=== PATIENT | male | born 1950 | race Hispanic/Latino ===

== ENCOUNTER → 2018-11-07 | Outpatient (CLI) | payer OTHER | END | disposition home or self-care (01) | LOC: SHCH 07:59 | PROVIDERS: ATTEND Internal Medicine Cardiovascular Disease | DX: I11.9 Hypertensive heart disease without heart failure (principal); I35.8 Other nonrheumatic aortic valve disorders; Z95.0 Presence of cardiac pacemaker | CPT/HCPCS: 93306 ==

== ENCOUNTER → 2019-12-27 | Outpatient (CLI) | payer OTHER ==
[~2019-12-27] MED LIST: CANA300T PO; FERR325T29 PO; FURO40TA7 PO; LEVO125T11 PO; LOSA100T58 PO; METF-446 PO; NITR0.4T50 SL; PRAV80TA21 PO; SITA100T12 PO; WARF-57 PO
== END | disposition home or self-care (01) ==
LOC: OIH 13:37
PROVIDERS: ATTEND Internal Medicine Cardiovascular Disease
DX: Z13.6 Encounter for screening for cardiovascular disorders (principal)
CPT/HCPCS: 75571

== ENCOUNTER → 2020-03-17 | Outpatient (CLI) | payer OTHER ==
[~2020-03-17] MED LIST changes: +APIX2.5T PO; +ASPI-1005 PO; +DEXA6TAB PO; +FOLI0.4T2 PO; +REGADENOSON 0.4 MG/5 ML PF SYG IVP SCH; -WARF-57 PO
== END | disposition home or self-care (01) ==
LOC: SHCH 07:42
PROVIDERS: ATTEND Internal Medicine Cardiovascular Disease
DX: I10 Essential (primary) hypertension (principal); I25.10 Atherosclerotic heart disease of native coronary artery without angina pectoris
CPT/HCPCS: 78452; 93017; 96374; A9500 ×2; J2785

== ENCOUNTER 2020-04-07 11:06 | Inpatient (IN) | payer OTHER ==
[~2020-04-07] VITALS: Ht 170.2 cm; Wt 98.6 kg
[2020-04-07] MEDS ORDERED: ONDANSETRON HCL 4 MG/2 ML VIAL ONE (12:31)
[2020-04-07] MEDS ORDERED: MORPHINE SULFATE 2 MG/ML 1ML SYG IM PRN (16:15)
[2020-04-07] MEDS ORDERED: PANTOPRAZOLE SODIUM 40 MG TABLET.DR PO SCH (16:15)
[2020-04-07] MEDS: CEFTRIAXONE SODIUM 1 GM IVP SCH (16:15)
[2020-04-07] MEDS ORDERED: DOXYCYCLINE HYCLATE 100 MG TABLET PO ONE (16:46)
[2020-04-07] MEDS ORDERED: CEFTRIAXONE SODIUM 1 GM ONE (16:46)
[2020-04-07] MEDS: INSULIN HUMULIN R 100 UNIT/ML 3ML SQ SCH (21:00)
[2020-04-07] MEDS: DOXYCYCLINE HYCLATE 100 MG TABLET PO SCH (21:00)
[2020-04-08] MEDS ORDERED: DOXYCYCLINE HYCLATE 100 MG TABLET PO ONE ×2 (03:14→16:16)
[2020-04-08] MEDS ORDERED: CEFTRIAXONE SODIUM 1 GM ONE ×2 (03:14→16:17)
[2020-04-08] MEDS ORDERED: ACETAMINOPHEN 325 MG TAB ONE (03:14)
[2020-04-08] MEDS: CEFTRIAXONE SODIUM 1 GM IVP SCH ×2 (04:15→16:15)
[2020-04-08] MEDS: INSULIN HUMULIN R 100 UNIT/ML 3ML SQ SCH ×4 (07:30→21:00)
[2020-04-08] MEDS ORDERED: METOPROLOL TARTRATE 25 MG TAB ONE (08:03)
[2020-04-08] MEDS ORDERED: METHYLPREDNISOLONE SOD SUCC 40MG/ML 1ML ONE ×2 (08:03→21:19)
[2020-04-08] MEDS ORDERED: PANTOPRAZOLE SODIUM 40 MG TABLET.DR ONE (08:03)
[2020-04-08] MEDS: ENOXAPARIN SODIUM 40 MG/0.4 ML SYRINGE SQ SCH (09:00)
[2020-04-08] MEDS ORDERED: METHYLPREDNISOLONE SOD SUCC 40MG/ML 1ML IVP SCH (09:00)
[2020-04-08] MEDS: METOPROLOL SUCCINATE 50 MG TAB.SR.24H PO SCH (09:00)
[2020-04-08] MEDS: DOXYCYCLINE HYCLATE 100 MG TABLET PO SCH ×2 (09:00→21:00)
[2020-04-08] MEDS: PANTOPRAZOLE SODIUM 40 MG TABLET.DR PO SCH (09:00)
--- NOTE | 2020-04-08 10:36 | NUR ---
DCP: HOME with Family Sw unable to meet with pt in ER [facility] unit. Sw spoke to son Polo Garcia III [phone]. PEr son pt live with Gogo Garcia [phone]. Pt is independent of all ADLS, uses CPAP at night, no in home care services. PCP is Jg Ramires and pt uses [facility] for rx. Plan is home at pa. Addendum: 04/08/20 at 1038 by DEION BILLY SS Amended: Links added.
[2020-04-08] MEDS ORDERED: THIAMINE HCL 100 MG/ML 2ML VIAL ONE (13:56)
[2020-04-08] MEDS ORDERED: SODIUM POLYSTYRENE SULFONATE 15 GM/60 ML ML ONE (13:56)
[2020-04-08] MEDS ORDERED: FOLIC ACID/VITAMIN B COMP W-C 1 CAP TAB PO SCH (14:30)
[2020-04-08] MEDS: SODIUM CHLORIDE 0.9% 1000ML 1,000 ML IV SCH ×2 (16:29→16:30)
[2020-04-08] MEDS ORDERED: INSULIN HUMULIN R 100 UNIT/ML 3ML ONE (23:10)
[2020-04-09] MEDS ORDERED: CEFTRIAXONE SODIUM 1 GM ONE (04:08)
[2020-04-09] MEDS ORDERED: DOXYCYCLINE HYCLATE 100 MG TABLET PO ONE ×2 (04:08→15:31)
[2020-04-09] MEDS ORDERED: SODIUM CHLORIDE 0.9% 100 ML IV ONE (04:09)
[2020-04-09] MEDS: CEFTRIAXONE SODIUM 1 GM IVP SCH ×2 (04:15→16:15)
[2020-04-09] MEDS: INSULIN HUMULIN R 100 UNIT/ML 3ML SQ SCH ×4 (07:30→21:00)
[2020-04-09] MEDS ORDERED: ENOXAPARIN SODIUM 40 MG/0.4 ML SYRINGE SQ ONE (07:42)
[2020-04-09] MEDS ORDERED: PANTOPRAZOLE SODIUM 40 MG TABLET.DR ONE (07:42)
[2020-04-09] MEDS: ENOXAPARIN SODIUM 40 MG/0.4 ML SYRINGE SQ SCH (09:00)
[2020-04-09] MEDS: DOXYCYCLINE HYCLATE 100 MG TABLET PO SCH (09:00)
[2020-04-09] MEDS: PANTOPRAZOLE SODIUM 40 MG TABLET.DR PO SCH (09:00)
[2020-04-09] MEDS: METOPROLOL SUCCINATE 50 MG TAB.SR.24H PO SCH (09:00)
[2020-04-09] MEDS ORDERED: METHYLPREDNISOLONE SOD SUCC 40MG/ML 1ML ONE (21:48)
[2020-04-09 21:57] VITALS: BP 120/77; PULSE 71; RESP 17; TEMP 97.6
--- NOTE | 2020-04-09 22:00 | NUR ---
ADMISSION [id number] RECEIVED ED REPORT FROM VIRGINIA PEREZ RN 2199 PT ADMIT RM 410 ACCOMPANIED BY NO ONE CONNECTED TO TELE MONITOR PT SELF AMBULATE TO CHAIR IN NO DISTRESS AT THIS TIME. ADMISSION DATABASE COMPLETED BEFORE ARRIVAL. HOME MED RECONCILED INTO SYSTEM. PT VOICES NO CONCERNS AT THIS TIME STATES IS 'FEELING BETTER' WILL CONTINUE TO MONITOR PT.
[2020-04-09] MEDS: SODIUM CHLORIDE 0.9% 1000ML 1,000 ML IV SCH (22:30)
[2020-04-09 23:46] VITALS: BP 109/68; PULSE 70; RESP 17; TEMP 97.9
[2020-04-10 03:27] VITALS: BP 118/68; PULSE 70; RESP 17; TEMP 98
[2020-04-10] MEDS: DOXYCYCLINE HYCLATE 100 MG TABLET PO SCH ×3 (03:41→20:50)
[2020-04-10] MEDS: CEFTRIAXONE SODIUM 1 GM IVP SCH ×2 (03:41→16:27)
[2020-04-10] MEDS: INSULIN HUMULIN R 100 UNIT/ML 3ML SQ SCH ×4 (06:14→20:57)
[2020-04-10 08:00] VITALS: BP 127/75; PULSE 72; RESP 18; TEMP 98.2
[2020-04-10] MEDS: METOPROLOL SUCCINATE 50 MG TAB.SR.24H PO SCH (09:19)
[2020-04-10] MEDS: PANTOPRAZOLE SODIUM 40 MG TABLET.DR PO SCH (09:19)
[2020-04-10] MEDS: ENOXAPARIN SODIUM 40 MG/0.4 ML SYRINGE SQ SCH (10:03)
[2020-04-10 12:00] VITALS: BP 132/72; PULSE 70; RESP 18; TEMP 98.1
[2020-04-10 16:00] VITALS: BP 130/78; PULSE 70; RESP 17; TEMP 97.5
[2020-04-10 20:38] VITALS: BP 119/75; PULSE 70; RESP 19; TEMP 97.9
[2020-04-10 23:36] VITALS: BP 150/77; PULSE 72; RESP 18; TEMP 98.4
--- NOTE | 2020-04-10 23:54 | NUR ---
Assessment Patient is in the bed laying down resting peacefully. He stated that he feels fine & does not need anything right now. Vitals are stable. Pt is being closely monitored.
[2020-04-11 03:24] VITALS: BP 132/66; PULSE 72; RESP 18; TEMP 97.8
[2020-04-11] MEDS: CEFTRIAXONE SODIUM 1 GM IVP SCH (03:43)
[2020-04-11] MEDS: INSULIN HUMULIN R 100 UNIT/ML 3ML SQ SCH ×2 (06:17→12:05)
[2020-04-11 08:02] VITALS: BP 132/71; PULSE 70; RESP 18; TEMP 97.8
[2020-04-11] MEDS: PANTOPRAZOLE SODIUM 40 MG TABLET.DR PO SCH (08:29)
[2020-04-11] MEDS: DOXYCYCLINE HYCLATE 100 MG TABLET PO SCH (08:29)
[2020-04-11] MEDS: ENOXAPARIN SODIUM 40 MG/0.4 ML SYRINGE SQ SCH (08:29)
[2020-04-11] MEDS: METOPROLOL SUCCINATE 50 MG TAB.SR.24H PO SCH (08:31)
[2020-04-11 10:33] VITALS: BP 122/48; PULSE 69; RESP 18; TEMP 98.1
--- NOTE | 2020-04-11 15:25 | NUR ---
CM NOTE/DCP NEW ORDER FOR IRU. PATIENT IS COVID POSITIVE, MADE DR. WILDER AWARE THAT SNF IS MORE APPROPRIATE. WANTS ME TO DISCUSS SNF VS IRU WITH PATIENT. PATIENT CALLED TO ROOM TO DISCUSS DC PLANNING. PER PATIENT, IS GOOD WITH AMBULATION AND DECLINING SNF OR IRU. PER PATIENT, IS AT HOME AND IS COVID POSITIVE. SON, IRIS SWARTZ III, IS SUPPORT SYSTEM AND WILL PROVIDE GROCERIES AND ANYTHING ELSE NEEDED PATIENT AND MUST QUARANTINE DUE TO POSITIVE PINZON VIRUS. SON CALLED TO [phone], NO ANSWER, VM LEFT. DR. WILDER CALLED AND MADE AWARE OF PATIENT DECLINING IRU AND SNF. PER , WILL POSSIBLY DC HOME THIS EVENING. PRIMARY NURSE, BONNY, OUT TO LUNCH. MESSAGE LEFT WITH JUAN ANTONIO DALEY.
[2020-04-11 16:35] VITALS: BP 145/92; PULSE 71; RESP 18; TEMP 98
--- NOTE | 2020-04-11 18:19 | NUR ---
Pt discharged at 6:05pm, pt was A&Ox4, showed no signs and symptoms of distress, on room air, pt was educated and given education on covid19 and discharged medication, pt came to pick him up, pt stated he understood discharge instructions and that he will quarantine for 14 days, pt signed papers, IV taken out, Tele monitor off,
== END 2020-04-11 18:30 | disposition home or self-care (01) | DRG 871 ==
LOC: EDH 11:06 → EDHIP 15:59 → 4BH 04-09 21:38
PROVIDERS: ADMIT Internal Medicine; ATTEND Internal Medicine
DX: A41.89 Other specified sepsis (principal); U07.1 COVID-19; J12.89 Other viral pneumonia; J96.01 Acute respiratory failure with hypoxia; N17.9 Acute kidney failure, unspecified; I50.32 Chronic diastolic (congestive) heart failure; J44.0 Chronic obstructive pulmonary disease with (acute) lower respiratory infection; I13.0 Hypertensive heart and chronic kidney disease with heart failure and stage 1 through stage 4 chronic kidney disease, or unspecified chronic kidney disease; E66.01 Morbid (severe) obesity due to excess calories; N18.9 Chronic kidney disease, unspecified; I48.91 Unspecified atrial fibrillation; E78.5 Hyperlipidemia, unspecified; D64.9 Anemia, unspecified; R19.7 Diarrhea, unspecified; E11.22 Type 2 diabetes mellitus with diabetic chronic kidney disease; E87.5 Hyperkalemia; Z95.0 Presence of cardiac pacemaker; Z87.891 Personal history of nicotine dependence; Z82.3 Family history of stroke; Z85.46 Personal history of malignant neoplasm of prostate; Z78.9 Other specified health status; Z68.34 Body mass index [BMI] 34.0-34.9, adult; Z82.49 Family history of ischemic heart disease and other diseases of the circulatory system; Z83.3 Family history of diabetes mellitus

== ENCOUNTER → 2020-08-01 | Outpatient (CLI) | payer OTHER | END | disposition home or self-care (01) | LOC: SHCH 07:40 | PROVIDERS: ATTEND Internal Medicine Cardiovascular Disease | DX: I48.91 Unspecified atrial fibrillation (principal); I11.9 Hypertensive heart disease without heart failure; I10 Essential (primary) hypertension | CPT/HCPCS: 78452; 93017; 96374; A9500 ×2; J2785 ==

== ENCOUNTER 2020-09-23 05:55 | Day surgery (SDC) | payer OTHER ==
[2020-09-22 09:36] LABS: BASOPHILS % (AUTO) 0.7 % (0.0-5.0); EOSINOPHILS % (AUTO) 2.1 % (0.0-8.0); HEMATOCRIT 33.5 % (42-54); LYMPHOCYTES % (AUTO) 18.6 % (21.0-51.0); MEAN CORPUSCULAR HEMOGLOBIN 32.2 pg (27.0-33.0); MEAN CORPUSCULAR HGB CONC 29.6 g/dL (32.0-36.0); MEAN CORPUSCULAR VOLUME 109.1 fL (79-99); MONOCYTES % (AUTO) 9.5 % (3.0-13.0); NEUTROPHILS % (AUTO) 68.7 % (40.0-77.0); PLATELET COUNT (AUTO) 177 K/uL (130-400); RED BLOOD CELL COUNT(AUTO) 3.07 MIL/uL (4.50-6.20); RED CELL DISTRIBUTION WIDTH 15.8 % (11.0-15.5); WHITE BLOOD COUNT (AUTO) 5.7 K/uL (4.8-10.8)
[2020-09-22 09:40] LABS: APPEARANCE,URINE Clear (CLEAR); BILIRUBIN,URINE Negative (NEGATIVE); COLOR,URINE Yellow (YELLOW); GLUCOSE, URINE (UA) 500 mg/dL (NEGATIVE); KETONES,URINE Negative (NEGATIVE); LEUKOCYTE ESTERASE ,URINE Negative (NEGATIVE); NITRATE,URINE Negative (NEGATIVE); OCCULT BLOOD,URINE Negative (NEGATIVE); PROTEIN,URINE Negative (NEGATIVE); UROBILINOGEN,URINE 0.2 mg/dL (0.2-1.0)
[2020-09-22 09:46] LABS: CREATININE 1.3 mg/dL (0.5-1.5)
[2020-09-22 09:50] LABS: INR 0.97 (0.85-1.15); PARTIAL THROMBOPLASTIN TIME 25.9 SEC (26.3-35.5); PROTHROMBIN TIME 10.5 SEC (9.6-11.6)
[2020-09-22 09:59] LABS: BACTERIA,URINE Rare /HPF (None Seen); RBC,URINE 0-1 /HPF (0-1); SPERM,URINE Few /HPF (None Seen); SQUAMOUS EPITHELIAL CELL,UR Rare /HPF (0-2); WBC,URINE 0-1 /HPF (0-1)
--- NOTE | 2020-09-22 11:27 | NUR ---
LABS ABNORMAL H&H , CREA REPORTED TO Ivis CRENSHAW ,NO FURTHER ORDERS GIVEN. OK TO PROCEED WITH PLANNED PROCEDURE
[2020-09-22 12:23] VITALS: BP 128/72
[~2020-09-23] VITALS: Ht 162.6 cm; Wt 104.0 kg
[2020-09-23] VITALS (10 sets, daily range): BP systolic 104–141; BP diastolic 56–75
[~2020-09-23 05:55] MED LIST changes: -APIX2.5T PO; -ASPI-1005 PO; +ASPI-1443 PO; -DEXA6TAB PO; -LEVO125T11 PO; +LEVO137C4 PO; +METO-408 PO; -REGADENOSON 0.4 MG/5 ML PF SYG IVP SCH
[2020-09-23] MEDS ORDERED: SODIUM CHLORIDE 0.9% 1000ML 1,000 ML IV ONE (06:27)
[2020-09-23] MEDS ORDERED: HEPARIN SODIUM 1000UNIT/ML 10ML VIAL ONE (07:43)
[2020-09-23] MEDS ORDERED: NITROGLYCERIN 2 MG/VIAL VIAL IV ONE (07:43)
[2020-09-23] MEDS ORDERED: IOHEXOL 350 MG/ML 100ML INFUS..BTL IV ONE (07:43)
[2020-09-23] MEDS ORDERED: IOHEXOL-350 50ML VIAL IV ONE (07:43)
[2020-09-23] MEDS ORDERED: SODIUM BICARB 50MEQ 50ML VIAL 50 ML ONE (07:43)
[2020-09-23] MEDS ORDERED: MEPERIDINE-PF 25 MG/ML SYG ONE ×2 (07:44→09:08)
[2020-09-23] MEDS ORDERED: MIDAZOLAM HCL 1 MG/ML 2ML VIAL ONE ×2 (07:44→09:08)
[2020-09-23] MEDS ORDERED: LIDOCAINE HCL 2% 20ML ONE (07:45)
[2020-09-23] MEDS ORDERED: NICARDIPINE HCL 25 MG/10 ML ML IV ONE (08:53)
[2020-09-23] MEDS ORDERED: SODIUM CHLORIDE 0.9% 1000ML 1,000 ML IV SCH (10:00)
[2020-09-23] MEDS ORDERED: ACETAMINOPHEN-CODEINE 300/30MG TAB PO PRN ×2 (10:00)
== END 2020-09-23 14:23 | disposition home or self-care (01) ==
LOC: DAH 05:55
PROVIDERS: ATTEND Internal Medicine Cardiovascular Disease
DX: I25.119 Atherosclerotic heart disease of native coronary artery with unspecified angina pectoris (principal); I11.0 Hypertensive heart disease with heart failure; I50.32 Chronic diastolic (congestive) heart failure; I48.20 Chronic atrial fibrillation, unspecified; I49.5 Sick sinus syndrome; E11.9 Type 2 diabetes mellitus without complications; G47.33 Obstructive sleep apnea (adult) (pediatric); E78.5 Hyperlipidemia, unspecified; Z79.84 Long term (current) use of oral hypoglycemic drugs; Z79.82 Long term (current) use of aspirin; Z79.899 Other long term (current) drug therapy; Z79.890 Hormone replacement therapy; Z98.890 Other specified postprocedural states; Z95.0 Presence of cardiac pacemaker; Z85.46 Personal history of malignant neoplasm of prostate
CPT/HCPCS: 36415; 71045; 80048; 81001; 82948 ×2; 85025; 85610; 85730; 93005; 93458; A4215; A4221; A4222; A4223; A4663; C1769 ×3; C1894 ×2; J1644 ×2; J2175 ×2; J2250 ×2; J3490 ×4; J7030; Q9965; Q9967 ×2; 99156; 99157

== ENCOUNTER 2020-10-27 07:35 | Day surgery (SDC) | payer OTHER ==
[2020-10-23 09:35] LABS: BASOPHILS % (AUTO) 0.5 % (0.0-5.0); EOSINOPHILS % (AUTO) 1.5 % (0.0-8.0); LYMPHOCYTES % (AUTO) 12.9 % (21.0-51.0); MEAN CORPUSCULAR HEMOGLOBIN 32.7 pg (27.0-33.0); MEAN CORPUSCULAR HGB CONC 31.7 g/dL (32.0-36.0); MEAN CORPUSCULAR VOLUME 103.3 fL (79-99); MONOCYTES % (AUTO) 8.5 % (3.0-13.0); NEUTROPHILS % (AUTO) 76.2 % (40.0-77.0); PLATELET COUNT (AUTO) 143 K/uL (130-400); RED BLOOD CELL COUNT(AUTO) 4.55 MIL/uL (4.50-6.20); RED CELL DISTRIBUTION WIDTH 14.1 % (11.0-15.5); WHITE BLOOD COUNT (AUTO) 8.5 K/uL (4.8-10.8)
[2020-10-23 09:38] LABS: APPEARANCE,URINE Clear (CLEAR); BILIRUBIN,URINE Negative (NEGATIVE); COLOR,URINE Yellow (YELLOW); GLUCOSE, URINE (UA) 500 mg/dL (NEGATIVE); KETONES,URINE Negative (NEGATIVE); LEUKOCYTE ESTERASE ,URINE Negative (NEGATIVE); NITRATE,URINE Negative (NEGATIVE); OCCULT BLOOD,URINE Negative (NEGATIVE); PH,URINE 6.5 (5.0-8.0); PROTEIN,URINE Negative (NEGATIVE); UROBILINOGEN,URINE 0.2 mg/dL (0.2-1.0)
[2020-10-23 09:44] LABS: CREATININE 1.2 mg/dL (0.5-1.5); POTASSIUM 4.7 mmol/L (3.5-5.1)
[2020-10-23 09:47] LABS: INR 1.05 (0.85-1.15); PROTHROMBIN TIME 11.2 SEC (9.6-11.6)
[2020-10-23 09:49] LABS: PARTIAL THROMBOPLASTIN TIME 28.5 SEC (26.3-35.5)
[2020-10-23 09:54] LABS: BACTERIA,URINE None Seen /HPF (None Seen); RBC,URINE None Seen /HPF (0-1); WBC,URINE 0-1 /HPF (0-1)
[2020-10-24 09:30] VITALS: BP 148/70
[~2020-10-27] VITALS: Ht 165.1 cm; Wt 104.5 kg
[~2020-10-27 07:35] MED LIST changes: +0.9% NACL 500ML IV.SOLN 500 ML IV SCH; -FOLI0.4T2 PO; +FOLI1 PO; -NITR0.4T50 SL; +VITAMIN B12 PO
[2020-10-27] MEDS ORDERED: 0.9%NACL 1000ML 1,000 ML IV ONE (07:50)
[2020-10-27 08:00] VITALS: BP 153/70
[2020-10-27 09:30] VITALS: BP 126/68
[2020-11-18] MEDS ORDERED: HYDR-4060 PO (09:59)
== END 2020-10-27 09:30 | disposition home or self-care (01) ==
LOC: DAH 07:35
PROVIDERS: ATTEND Internal Medicine Cardiovascular Disease
DX: I25.10 Atherosclerotic heart disease of native coronary artery without angina pectoris (principal); E11.9 Type 2 diabetes mellitus without complications; Z53.8 Procedure and treatment not carried out for other reasons; Z79.01 Long term (current) use of anticoagulants; Z79.84 Long term (current) use of oral hypoglycemic drugs
CPT/HCPCS: 36415; 71045; 80048; 81001; 82948; 85025; 85610; 85730; 93005; A4215; A4221; A4222; A4223 ×2; A4663; A6260; J7030

== ENCOUNTER 2020-11-16 08:40 | Emergency (ER) | payer OTHER ==
[~2020-11-16 08:40] MED LIST changes: -0.9% NACL 500ML IV.SOLN 500 ML IV SCH
[2020-11-16] MEDS ORDERED: ONDANSETRON ODT 4 MG TAB ONE (10:11)
[2020-11-16] MEDS ORDERED: HYDROMORPHONE 1 MG/1 ML AMP ONE (10:11)
[2020-11-18] MEDS ORDERED: HYDR-4060 PO (09:59)
== END 2020-11-16 11:20 | disposition home or self-care (01) ==
LOC: EDH 08:40
DX: M54.32 Sciatica, left side (principal); I48.91 Unspecified atrial fibrillation; I50.9 Heart failure, unspecified; J44.9 Chronic obstructive pulmonary disease, unspecified; I12.0 Hypertensive chronic kidney disease with stage 5 chronic kidney disease or end stage renal disease; E11.22 Type 2 diabetes mellitus with diabetic chronic kidney disease; N18.6 End stage renal disease
CPT/HCPCS: 96372; 99283; J1170

== ENCOUNTER 2020-11-19 05:42 | Day surgery (SDC) | payer OTHER ==
[2020-11-17 10:46] LABS: BASOPHILS % (AUTO) 0.4 % (0.0-5.0); EOSINOPHILS % (AUTO) 2.2 % (0.0-8.0); HEMATOCRIT 47.6 % (42-54); LYMPHOCYTES % (AUTO) 15.2 % (21.0-51.0); MEAN CORPUSCULAR HEMOGLOBIN 32.1 pg (27.0-33.0); MEAN CORPUSCULAR HGB CONC 32.1 g/dL (32.0-36.0); MEAN CORPUSCULAR VOLUME 99.8 fL (79-99); MONOCYTES % (AUTO) 9.9 % (3.0-13.0); NEUTROPHILS % (AUTO) 72.1 % (40.0-77.0); PLATELET COUNT (AUTO) 130 K/uL (130-400); RED BLOOD CELL COUNT(AUTO) 4.77 MIL/uL (4.50-6.20); RED CELL DISTRIBUTION WIDTH 13.3 % (11.0-15.5)
[2020-11-17 10:47] LABS: APPEARANCE,URINE Clear (CLEAR); BILIRUBIN,URINE Negative (NEGATIVE); COLOR,URINE Yellow (YELLOW); GLUCOSE, URINE (UA) >=1000 mg/dL (NEGATIVE); KETONES,URINE Negative (NEGATIVE); LEUKOCYTE ESTERASE ,URINE Negative (NEGATIVE); NITRATE,URINE Negative (NEGATIVE); OCCULT BLOOD,URINE Negative (NEGATIVE); PROTEIN,URINE Negative (NEGATIVE)
[2020-11-17 10:53] LABS: BACTERIA,URINE Rare /HPF (None Seen); RBC,URINE None Seen /HPF (0-1); SQUAMOUS EPITHELIAL CELL,UR 0-2 /HPF (0-2); WBC,URINE None Seen /HPF (0-1)
[2020-11-17 10:54] LABS: CREATININE 1.4 mg/dL (0.5-1.5); POTASSIUM 4.8 mmol/L (3.5-5.1)
[2020-11-17 11:28] LABS: INR 1.06 (0.85-1.15); PROTHROMBIN TIME 11.5 SEC (9.6-11.6)
[2020-11-18 09:12] VITALS: BP 148/82
[~2020-11-19] VITALS: Ht 167.6 cm; Wt 104.0 kg
[2020-11-19] VITALS (12 sets, daily range): BP systolic 116–155; BP diastolic 63–79
[~2020-11-19 05:42] MED LIST changes: +HYDR-4060 PO; -VITAMIN B12 PO
[2020-11-19] MEDS ORDERED: 0.9%NACL 1000ML 1,000 ML IV ONE (06:09)
[2020-11-19] MEDS ORDERED: SODIUM BICARB 50MEQ 50ML VIAL 50 ML ONE (07:13)
[2020-11-19] MEDS ORDERED: NITROGLYCERIN 2 MG VIAL IV ONE (07:14)
[2020-11-19] MEDS ORDERED: MIDAZOLAM HCL 1 MG/ML 2ML VIAL ONE ×2 (07:14→07:53)
[2020-11-19] MEDS ORDERED: HEPARIN 10,000 UNIT/10ML (1,000 UNIT/ML) VIAL ONE (07:14)
[2020-11-19] MEDS ORDERED: MEPERIDINE-PF 25 MG/ML SYG ONE ×2 (07:14→07:53)
[2020-11-19] MEDS ORDERED: LIDOCAINE HCL 400MG/20ML VIAL ONE (07:14)
[2020-11-19] MEDS ORDERED: IOHEXOL 350 MG/ML 100ML INFUS..BTL IV ONE (07:14)
[2020-11-19] MEDS ORDERED: IOHEXOL-350 50ML VIAL IV ONE (07:14)
[2020-11-19] MEDS ORDERED: NITR0.4T50 SL (07:18)
[2020-11-19] MEDS ORDERED: CLOPIDOGREL 300MG TAB ONE (08:22)
[2020-11-19] MEDS ORDERED: ASPIRIN 325MG EC TAB PO ONE (08:22)
[2020-11-19] MEDS ORDERED: 0.9%NACL 1000ML 1,000 ML IV SCH (08:30)
[2020-11-19] MEDS ORDERED: DEXTROSE 50%-WATER 50 ML DISP.SYRIN IV PRN (08:45)
[2020-11-19] MEDS ORDERED: INSULIN HUMULIN R 100 UNIT/ML 3ML SQ SCH (11:30)
== END 2020-11-19 15:05 ==
LOC: DAH 05:42
PROVIDERS: ATTEND Internal Medicine Cardiovascular Disease
DX: I25.10 Atherosclerotic heart disease of native coronary artery without angina pectoris (principal); I48.20 Chronic atrial fibrillation, unspecified; I49.5 Sick sinus syndrome; I10 Essential (primary) hypertension; E78.5 Hyperlipidemia, unspecified; E11.9 Type 2 diabetes mellitus without complications; G47.33 Obstructive sleep apnea (adult) (pediatric); Z79.899 Other long term (current) drug therapy; Z79.01 Long term (current) use of anticoagulants; Z79.82 Long term (current) use of aspirin; Z79.84 Long term (current) use of oral hypoglycemic drugs; Z95.0 Presence of cardiac pacemaker; Z85.46 Personal history of malignant neoplasm of prostate; Z86.16 Personal history of COVID-19; Z98.890 Other specified postprocedural states
CPT/HCPCS: 36415 ×2; 71045; 80048; 81001; 82948 ×2; 85025; 85347; 85610; 85730; 93005; 93454; A4215; A4216; A4221; A4222; A4223 ×3; A4606; A4663; C1725; C1760; C1769 ×2; C1874; C1887; C1894; C9600; J1644 ×2; J2175 ×2; J2250 ×2; J3490 ×3; J7030; Q9965; Q9967; 99156; 99157

== ENCOUNTER 2021-02-12 23:40 | Emergency (ER) | payer OTHER ==
[~2021-02-12 23:40] MED LIST changes: +NITR0.4T50 SL
[2021-02-13] MEDS ORDERED: DiphenhydrAMINE HCL 50 MG/ML VIAL ONE (00:06)
[2021-02-13] MEDS ORDERED: KETOROLAC TROMETHAMINE 30MG/ML ONE (00:06)
[2021-02-13 00:34] LABS: BASOPHILS % (AUTO) 0.4 % (0.0-5.0); EOSINOPHILS % (AUTO) 1.1 % (0.0-8.0); LYMPHOCYTES % (AUTO) 12.6 % (21.0-51.0); MEAN CORPUSCULAR HEMOGLOBIN 32.9 pg (27.0-33.0); MEAN CORPUSCULAR VOLUME 102.9 fL (79-99); MONOCYTES % (AUTO) 8.5 % (3.0-13.0); NEUTROPHILS % (AUTO) 76.9 % (40.0-77.0); NUCLEATED RED BLOOD CELLS 0.2 % (0.0-0.19); PLATELET COUNT (AUTO) 217 K/uL (130-400); RED BLOOD CELL COUNT(AUTO) 2.43 MIL/uL (4.50-6.20); RED CELL DISTRIBUTION WIDTH 18.5 % (11.0-15.5); WHITE BLOOD COUNT (AUTO) 9.7 K/uL (4.8-10.8)
[2021-02-13 00:37] LABS: CREATININE 1.6 mg/dL (0.5-1.5); POTASSIUM 4.6 mmol/L (3.5-5.1)
[2021-02-13 00:41] LABS: INR 1.08 (0.85-1.15); PARTIAL THROMBOPLASTIN TIME 21.6 SEC (26.3-35.5); PROTHROMBIN TIME 11.1 SEC (9.6-11.6)
[2021-02-13 00:42] LABS: ALBUMIN 3.6 g/dL (3.5-5.0); BILIRUBIN,TOTAL 0.4 mg/dL (0.2-1.0); TOTAL PROTEIN, SERUM 6.9 g/dL (6.0-8.3)
== END 2021-02-13 01:26 | disposition home or self-care (01) ==
LOC: EDH 23:40
DX: R51.9 Headache, unspecified (principal); I48.91 Unspecified atrial fibrillation; I50.9 Heart failure, unspecified; I12.9 Hypertensive chronic kidney disease with stage 1 through stage 4 chronic kidney disease, or unspecified chronic kidney disease; E11.22 Type 2 diabetes mellitus with diabetic chronic kidney disease; N18.2 Chronic kidney disease, stage 2 (mild); J44.9 Chronic obstructive pulmonary disease, unspecified
CPT/HCPCS: 36415; 70450; 80053; 85025; 85610; 85730; 93005; 96361; 96374; 96375; 99285; J1200; J1885

== ENCOUNTER 2021-07-16 12:47 | Inpatient (IN) | payer OTHER ==
[~2021-07-16] VITALS: Ht 167.6 cm; Wt 102.4 kg
[2021-07-16 13:24] LABS: BASOPHILS % (AUTO) 0.3 % (0.0-5.0); EOSINOPHILS % (AUTO) 0.3 % (0.0-8.0); HEMATOCRIT 44.1 % (42-54); LYMPHOCYTES % (AUTO) 4.5 % (21.0-51.0); MEAN CORPUSCULAR HEMOGLOBIN 31.6 pg (27.0-33.0); MEAN CORPUSCULAR HGB CONC 32.4 g/dL (32.0-36.0); MEAN CORPUSCULAR VOLUME 97.4 fL (79-99); MONOCYTES % (AUTO) 0.3 % (3.0-13.0); NEUTROPHILS % (AUTO) 94.1 % (40.0-77.0); PLATELET COUNT (AUTO) 102 K/uL (130-400); RED BLOOD CELL COUNT(AUTO) 4.53 MIL/uL (4.50-6.20); RED CELL DISTRIBUTION WIDTH 14.7 % (11.0-15.5); WHITE BLOOD COUNT (AUTO) 3.8 K/uL (4.8-10.8)
[2021-07-16] MEDS ORDERED: ONDANSETRON 4MG INJ IVP ONE (13:30)
[2021-07-16 13:39] LABS: CREATININE 1.8 mg/dL (0.5-1.5); POTASSIUM 3.9 mmol/L (3.5-5.1)
[2021-07-16 13:43] LABS: ALBUMIN 3.8 g/dL (3.5-5.0); BILIRUBIN,TOTAL 2.4 mg/dL (0.2-1.0); TOTAL PROTEIN, SERUM 7.2 g/dL (6.0-8.3)
[2021-07-16 13:53] LABS: APPEARANCE,URINE Cloudy (CLEAR); BILIRUBIN,URINE Small (NEGATIVE); COLOR,URINE Dark Yellow (YELLOW); GLUCOSE, URINE (UA) >=1000 mg/dL (NEGATIVE); KETONES,URINE Trace mg/dL (NEGATIVE); LEUKOCYTE ESTERASE ,URINE Trace (NEGATIVE); NITRATE,URINE Negative (NEGATIVE); OCCULT BLOOD,URINE Negative (NEGATIVE); PROTEIN,URINE POS 1+ mg/dL (NEGATIVE)
[2021-07-16 13:58] LABS: BACTERIA,URINE Rare /HPF (None Seen); MUCUS,URINE Few LPF (None Seen); RBC,URINE 0-1 /HPF (0-1); SQUAMOUS EPITHELIAL CELL,UR Rare /HPF (0-2); WBC,URINE 0-1 /HPF (0-1); YEAST,URINE BUDDING Few /HPF (None Seen)
[2021-07-16] MEDS: 0.9%NACL 1000ML 1,000 ML IV ONE ×2 (16:50→18:01)
[2021-07-16] MEDS ORDERED: ACETAMINOPHEN 325 MG TAB PO PRN (19:00)
[2021-07-16] MEDS ORDERED: ONDANSETRON 4MG INJ IVP PRN (19:00)
[2021-07-16] MEDS ORDERED: MORPHINE 2 MG SYG IVP PRN (19:00)
[2021-07-16] MEDS: 0.9%NACL 50ML 50 ML IV SCH (19:27)
[2021-07-16] MEDS: ZOSYN 3.375GM +NS 50ML IV SCH (19:27)
[2021-07-16] MEDS: DEXTROSE 5 % AND 0.9 % NACL 1,000 ML IV SCH (19:27)
[2021-07-16 20:55] VITALS: BP 101/53
[2021-07-16] MEDS ORDERED: ROSU40TA21 PO (21:03)
[2021-07-16 23:30] VITALS: BP 96/50
[2021-07-17] MEDS: DEXTROSE 5 % AND 0.9 % NACL 1,000 ML IV SCH ×2 (03:29→20:00)
[2021-07-17] MEDS: ZOSYN 3.375GM +NS 50ML IV SCH ×3 (03:29→19:31)
[2021-07-17] MEDS: 0.9%NACL 50ML 50 ML IV SCH ×3 (03:29→19:31)
[2021-07-17 03:47] VITALS: BP 90/47
[2021-07-17 04:44] LABS: BASOPHILS % (AUTO) 0.3 % (0.0-5.0); EOSINOPHILS % (AUTO) 0.5 % (0.0-8.0); HEMATOCRIT 37.2 % (42-54); LYMPHOCYTES % (AUTO) 2.4 % (21.0-51.0); MEAN CORPUSCULAR HEMOGLOBIN 31.6 pg (27.0-33.0); MEAN CORPUSCULAR VOLUME 98.7 fL (79-99); MONOCYTES % (AUTO) 5.2 % (3.0-13.0); NEUTROPHILS % (AUTO) 89.7 % (40.0-77.0); PLATELET COUNT (AUTO) 81 K/uL (130-400); RED BLOOD CELL COUNT(AUTO) 3.77 MIL/uL (4.50-6.20); RED CELL DISTRIBUTION WIDTH 15.5 % (11.0-15.5); WHITE BLOOD COUNT (AUTO) 18.6 K/uL (4.8-10.8)
[2021-07-17 05:39] LABS: BILIRUBIN,TOTAL 3.6 mg/dL (0.2-1.0); CREATININE 3.2 mg/dL (0.5-1.5); MAGNESIUM 1.5 mg/dL (1.80-2.40); POTASSIUM 4.4 mmol/L (3.5-5.1)
[2021-07-17] MEDS ORDERED: GADOTERATE MEGLUMINE 10 MMOL/20 ML VIAL IV ONE (07:16)
[2021-07-17 07:59] VITALS: BP_SYST 115; BP_SYST 90; BP_DIAS 47; BP_DIAS 74
[2021-07-17 11:54] VITALS: BP 91/45
[2021-07-17 16:02] VITALS: BP 103/51
[2021-07-17 20:12] VITALS: BP 122/58
[2021-07-17] MEDS ORDERED: MAGNESIUM 2GM PREMIX 50ML 50 ML IV SCH (21:00)
[2021-07-17] MEDS: ALBUMIN (HUMAN) 25% 50 ML IV SCH (21:47)
[2021-07-18 00:16] VITALS: BP 97/54
[2021-07-18] MEDS: 0.9%NACL 50ML 50 ML IV SCH ×3 (03:39→20:29)
[2021-07-18] MEDS: ZOSYN 3.375GM +NS 50ML IV SCH ×3 (03:39→20:28)
[2021-07-18] MEDS: ALBUMIN (HUMAN) 25% 50 ML IV SCH ×3 (03:40→16:01)
[2021-07-18] MEDS: LEVOTHYROXINE 112 MCG TABLET PO SCH (04:08)
[2021-07-18] MEDS: LEVOTHYROXINE 25 MCG TABLET PO SCH (04:09)
[2021-07-18 04:16] VITALS: BP 109/57
[2021-07-18 06:13] LABS: HEMATOCRIT 36.8 % (42-54); MEAN CORPUSCULAR HEMOGLOBIN 31.3 pg (27.0-33.0); MEAN CORPUSCULAR HGB CONC 31.3 g/dL (32.0-36.0); PLATELET COUNT (AUTO) 48 K/uL (130-400); RED BLOOD CELL COUNT(AUTO) 3.68 MIL/uL (4.50-6.20); RED CELL DISTRIBUTION WIDTH 15.6 % (11.0-15.5); WHITE BLOOD COUNT (AUTO) 12.5 K/uL (4.8-10.8)
[2021-07-18 06:40] LABS: CREATININE 2.8 mg/dL (0.5-1.5); MAGNESIUM 2.3 mg/dL (1.80-2.40); POTASSIUM 3.8 mmol/L (3.5-5.1); TOTAL PROTEIN, SERUM 6.4 g/dL (6.0-8.3)
[2021-07-18 07:43] VITALS: BP 123/60
[2021-07-18 12:00] VITALS: BP 102/56
[2021-07-18 16:24] VITALS: BP 118/57
[2021-07-18 20:16] VITALS: BP 112/72
[2021-07-19 00:20] VITALS: BP 95/57
[2021-07-19] MEDS: ZOSYN 3.375GM +NS 50ML IV SCH ×3 (03:01→19:20)
[2021-07-19] MEDS: 0.9%NACL 50ML 50 ML IV SCH ×3 (03:02→19:21)
[2021-07-19 04:20] VITALS: BP 111/77
[2021-07-19 06:21] LABS: HEMATOCRIT 34.4 % (42-54); MEAN CORPUSCULAR HEMOGLOBIN 31.7 pg (27.0-33.0); MEAN CORPUSCULAR VOLUME 99.1 fL (79-99); PLATELET COUNT (AUTO) 40 K/uL (130-400); RED BLOOD CELL COUNT(AUTO) 3.47 MIL/uL (4.50-6.20); RED CELL DISTRIBUTION WIDTH 15.7 % (11.0-15.5); WHITE BLOOD COUNT (AUTO) 7.9 K/uL (4.8-10.8)
[2021-07-19] MEDS: LEVOTHYROXINE 112 MCG TABLET PO SCH (06:29)
[2021-07-19] MEDS: LEVOTHYROXINE 25 MCG TABLET PO SCH (06:29)
[2021-07-19 06:38] LABS: ALBUMIN 2.7 g/dL (3.5-5.0); BILIRUBIN,TOTAL 2.4 mg/dL (0.2-1.0); CREATININE 1.7 mg/dL (0.5-1.5); POTASSIUM 3.7 mmol/L (3.5-5.1); TOTAL PROTEIN, SERUM 5.9 g/dL (6.0-8.3)
[2021-07-19 08:03] LABS: LYMPHOCYTES % (MANUAL) 5 % (22-44); MAN.DIFF COMMENT-IMPRESSION MANUAL DIFFERENTIAL; MONOCYTES % (MANUAL) 11 % (2-9); SEGMENTED NEUTROPHILS % 84 % (40-70)
[2021-07-19 08:04] LABS: PLATELET MORPHOLOGY COMMENT MARKED DECREASE
[2021-07-19 08:23] VITALS: BP 122/72
[2021-07-19 12:00] VITALS: BP 127/76
[2021-07-19 20:20] VITALS: BP 110/51
[2021-07-20 00:20] VITALS: BP 114/62
[2021-07-20] MEDS: ZOSYN 3.375GM +NS 50ML IV SCH ×2 (03:06→11:43)
[2021-07-20] MEDS: 0.9%NACL 50ML 50 ML IV SCH ×2 (03:06→11:43)
[2021-07-20 04:20] VITALS: BP 122/72
[2021-07-20] MEDS: LEVOTHYROXINE 25 MCG TABLET PO SCH (06:03)
[2021-07-20] MEDS: LEVOTHYROXINE 112 MCG TABLET PO SCH (06:03)
[2021-07-20 06:13] LABS: HEMATOCRIT 34.4 % (42-54); MEAN CORPUSCULAR HEMOGLOBIN 32.1 pg (27.0-33.0); MEAN CORPUSCULAR HGB CONC 32.6 g/dL (32.0-36.0); MEAN CORPUSCULAR VOLUME 98.6 fL (79-99); RED BLOOD CELL COUNT(AUTO) 3.49 MIL/uL (4.50-6.20); RED CELL DISTRIBUTION WIDTH 15.5 % (11.0-15.5); WHITE BLOOD COUNT (AUTO) 7.2 K/uL (4.8-10.8)
[2021-07-20 06:22] LABS: ALBUMIN 2.6 g/dL (3.5-5.0); BILIRUBIN,TOTAL 2.2 mg/dL (0.2-1.0); CREATININE 1.4 mg/dL (0.5-1.5); MAGNESIUM 2.2 mg/dL (1.80-2.40); POTASSIUM 3.5 mmol/L (3.5-5.1); TOTAL PROTEIN, SERUM 6.1 g/dL (6.0-8.3)
[2021-07-20 08:00] VITALS: BP 129/63
[2021-07-20 12:00] VITALS: BP 132/77
== END 2021-07-20 16:27 | disposition home or self-care (01) | DRG 871 ==
LOC: EDH 12:47 → EDHIP 17:54 → 3AH 20:01
PROVIDERS: ADMIT Internal Medicine Infectious Disease; ATTEND Internal Medicine Infectious Disease
DX: A41.9 Sepsis, unspecified organism (principal); N17.0 Acute kidney failure with tubular necrosis; K80.00 Calculus of gallbladder with acute cholecystitis without obstruction; N18.30 Chronic kidney disease, stage 3 unspecified; D69.6 Thrombocytopenia, unspecified; E11.22 Type 2 diabetes mellitus with diabetic chronic kidney disease; E78.5 Hyperlipidemia, unspecified; R74.8 Abnormal levels of other serum enzymes; I25.10 Atherosclerotic heart disease of native coronary artery without angina pectoris; E78.00 Pure hypercholesterolemia, unspecified; N28.1 Cyst of kidney, acquired; D63.8 Anemia in other chronic diseases classified elsewhere; E86.9 Volume depletion, unspecified; I12.9 Hypertensive chronic kidney disease with stage 1 through stage 4 chronic kidney disease, or unspecified chronic kidney disease; E66.9 Obesity, unspecified; Z68.36 Body mass index [BMI] 36.0-36.9, adult; Z95.0 Presence of cardiac pacemaker; Z95.5 Presence of coronary angioplasty implant and graft; Z82.3 Family history of stroke; Z83.3 Family history of diabetes mellitus; Z82.49 Family history of ischemic heart disease and other diseases of the circulatory system
CPT/HCPCS: 36415; 71045; 74176; 76705; 78226; 80053; 81001; 82570; 82948; 83605; 83690; 83735; 84156; 84484; 85025; 85027; 93005; A9537; G0378; J2405; J2543; J3475; J7030; J7042; P9047

== ENCOUNTER → 2021-09-17 | Outpatient (CLI) | payer MEDICARE, OTHER ==
[~2021-09-17] MED LIST changes: -ASPI-1443 PO; -HYDR-4060 PO; -NITR0.4T50 SL; -PRAV80TA21 PO; +ROSU40TA21 PO
== END | disposition home or self-care (01) ==
LOC: SHCH 13:46
PROVIDERS: ATTEND Internal Medicine Cardiovascular Disease
DX: I08.3 Combined rheumatic disorders of mitral, aortic and tricuspid valves (principal); I27.20 Pulmonary hypertension, unspecified; I49.5 Sick sinus syndrome; I11.9 Hypertensive heart disease without heart failure; E11.9 Type 2 diabetes mellitus without complications; E78.5 Hyperlipidemia, unspecified; E66.9 Obesity, unspecified; Z95.0 Presence of cardiac pacemaker
CPT/HCPCS: 93306; 93356

== ENCOUNTER 2022-02-10 15:23 | Inpatient (IN) | payer OTHER ==
[~2022-02-10] VITALS: Ht 167.6 cm; Wt 98.4 kg
[2022-02-10 16:57] LABS: BASOPHILS % (AUTO) 0.3 % (0.0-5.0); EOSINOPHILS % (AUTO) 1.4 % (0.0-8.0); LYMPHOCYTES % (AUTO) 16.9 % (21.0-51.0); MEAN CORPUSCULAR HGB CONC 28.4 g/dL (32.0-36.0); MEAN CORPUSCULAR VOLUME 98.5 fL (79-99); NEUTROPHILS % (AUTO) 70.1 % (40.0-77.0); PLATELET COUNT (AUTO) 176 K/uL (130-400); RED CELL DISTRIBUTION WIDTH 18.1 % (11.0-15.5); WHITE BLOOD COUNT (AUTO) 6.5 K/uL (4.8-10.8)
[2022-02-10 17:00] LABS: HEMATOCRIT 19.7 % (42-54)
[2022-02-10 17:05] LABS: CREATININE 1.5 mg/dL (0.5-1.5); POTASSIUM 4.4 mmol/L (3.5-5.1)
[2022-02-10 17:10] LABS: ALBUMIN 3.4 g/dL (3.5-5.0); BILIRUBIN,TOTAL 0.4 mg/dL (0.2-1.0); TOTAL PROTEIN, SERUM 6.4 g/dL (6.0-8.3)
[2022-02-10] MEDS ORDERED: GLUCAGON 1MG KIT 1 MG ML IM PRN (18:00)
[2022-02-10] MEDS ORDERED: ONDANSETRON 4MG INJ IVP PRN (18:00)
[2022-02-10] MEDS ORDERED: DEXTROSE 50%-WATER 50 ML DISP.SYRIN IV PRN (18:00)
[2022-02-10] MEDS: INSULIN HUMULIN R 100 UNIT/ML 3ML SQ SCH (21:00)
[2022-02-11 02:58] VITALS: BP 115/56
[2022-02-11] MEDS ORDERED: PANT40TA54 PO (03:06)
[2022-02-11] MEDS ORDERED: DICY10CA13 PO (03:06)
[2022-02-11] MEDS ORDERED: CITA10TA89 PO (03:06)
[2022-02-11] MEDS ORDERED: CYAN1TAB68 SL (03:13)
[2022-02-11 06:34] LABS: BASOPHILS % (AUTO) 0.3 % (0.0-5.0); EOSINOPHILS % (AUTO) 2.3 % (0.0-8.0); HEMATOCRIT 23.7 % (42-54); LYMPHOCYTES % (AUTO) 16.2 % (21.0-51.0); MEAN CORPUSCULAR HEMOGLOBIN 27.2 pg (27.0-33.0); MEAN CORPUSCULAR HGB CONC 29.5 g/dL (32.0-36.0); MEAN CORPUSCULAR VOLUME 92.2 fL (79-99); MONOCYTES % (AUTO) 11.6 % (3.0-13.0); NEUTROPHILS % (AUTO) 69.3 % (40.0-77.0); PLATELET COUNT (AUTO) 133 K/uL (130-400); RED BLOOD CELL COUNT(AUTO) 2.57 MIL/uL (4.50-6.20); RED CELL DISTRIBUTION WIDTH 18.7 % (11.0-15.5); WHITE BLOOD COUNT (AUTO) 6.2 K/uL (4.8-10.8)
[2022-02-11 06:46] LABS: CREATININE 1.3 mg/dL (0.5-1.5); MAGNESIUM 2.1 mg/dL (1.80-2.40); POTASSIUM 4.2 mmol/L (3.5-5.1)
[2022-02-11] MEDS: INSULIN HUMULIN R 100 UNIT/ML 3ML SQ SCH ×4 (06:48→20:37)
[2022-02-11 07:39] VITALS: BP 110/62
[2022-02-11] MEDS: PANTOPRAZOLE 40 MG/VIAL IVP SCH ×2 (09:49→15:53)
[2022-02-11 11:30] VITALS: BP 113/63
[2022-02-11 13:01] LABS: % IRON SATURATION 3.6 % (30-44)
[2022-02-11] MEDS: LACTULOSE 20 GM/30 ML UDCUP PO PRN (13:31)
[2022-02-11] MEDS ORDERED: PHARMACY COMMUNICATION MISC SCH (15:00)
[2022-02-11 17:01] VITALS: BP 110/58
[2022-02-11 19:10] VITALS: BP 127/62
[2022-02-11] MEDS: IRON SUCROSE COMPLEX 100 MG/5 ML VIAL IVP SCH (20:37)
[2022-02-12 00:19] VITALS: BP 101/55
[2022-02-12 03:55] LABS: MEAN CORPUSCULAR HEMOGLOBIN 28.5 pg (27.0-33.0); MEAN CORPUSCULAR HGB CONC 30.8 g/dL (32.0-36.0); MEAN CORPUSCULAR VOLUME 92.6 fL (79-99); RED BLOOD CELL COUNT(AUTO) 2.7 MIL/uL (4.50-6.20); RED CELL DISTRIBUTION WIDTH 18.2 % (11.0-15.5); WHITE BLOOD COUNT (AUTO) 5.6 K/uL (4.8-10.8)
[2022-02-12 04:10] VITALS: BP 116/66
[2022-02-12 04:11] LABS: CREATININE 1.1 mg/dL (0.5-1.5); MAGNESIUM 2.1 mg/dL (1.80-2.40); POTASSIUM 3.9 mmol/L (3.5-5.1)
[2022-02-12] MEDS: INSULIN HUMULIN R 100 UNIT/ML 3ML SQ SCH ×4 (06:36→21:01)
[2022-02-12 08:00] VITALS: BP 123/66
[2022-02-12] MEDS: PANTOPRAZOLE 40 MG/VIAL IVP SCH (08:19)
[2022-02-12 12:00] VITALS: BP 119/43
[2022-02-12 16:00] VITALS: BP 115/62
[2022-02-12 19:20] VITALS: BP 124/74
[2022-02-12] MEDS ORDERED: 0.9% NACL 250ML 250 ML ONE (20:41)
[2022-02-12] MEDS: IRON SUCROSE COMPLEX 100 MG/5 ML VIAL IVP SCH (20:47)
[2022-02-13 00:25] VITALS: BP 109/68
[2022-02-13 04:10] VITALS: BP 126/64
[2022-02-13] MEDS: INSULIN HUMULIN R 100 UNIT/ML 3ML SQ SCH ×5 (07:30→20:50)
[2022-02-13 08:00] VITALS: BP 127/64
[2022-02-13] MEDS: PANTOPRAZOLE 40 MG/VIAL IVP SCH (09:09)
[2022-02-13 12:00] VITALS: BP 130/61
[2022-02-13 16:00] VITALS: BP 136/68
[2022-02-13 19:00] VITALS: BP 121/60
[2022-02-14] VITALS (7 sets, daily range): BP systolic 107–135; BP diastolic 63–79
[2022-02-14 03:47] LABS: HEMATOCRIT 25.2 % (42-54); MEAN CORPUSCULAR HEMOGLOBIN 27.6 pg (27.0-33.0); MEAN CORPUSCULAR HGB CONC 29.4 g/dL (32.0-36.0); NUCLEATED RED BLOOD CELLS 0.3 % (0.0-0.19); RED BLOOD CELL COUNT(AUTO) 2.68 MIL/uL (4.50-6.20); RED CELL DISTRIBUTION WIDTH 17.9 % (11.0-15.5); WHITE BLOOD COUNT (AUTO) 5.9 K/uL (4.8-10.8)
[2022-02-14 04:08] LABS: CREATININE 0.9 mg/dL (0.5-1.5); POTASSIUM 3.8 mmol/L (3.5-5.1)
[2022-02-14] MEDS: INSULIN HUMULIN R 100 UNIT/ML 3ML SQ SCH ×4 (06:01→20:38)
[2022-02-14] MEDS: PANTOPRAZOLE 40 MG/VIAL IVP SCH (08:47)
[2022-02-14] MEDS: LACTULOSE 20 GM/30 ML UDCUP PO PRN (08:52)
[2022-02-15 03:29] VITALS: BP 129/72
[2022-02-15 03:48] LABS: HEMATOCRIT 27.9 % (42-54); MEAN CORPUSCULAR HGB CONC 28.7 g/dL (32.0-36.0); MEAN CORPUSCULAR VOLUME 97.6 fL (79-99); NUCLEATED RED BLOOD CELLS 0.3 % (0.0-0.19); RED BLOOD CELL COUNT(AUTO) 2.86 MIL/uL (4.50-6.20)
[2022-02-15] MEDS: INSULIN HUMULIN R 100 UNIT/ML 3ML SQ SCH ×2 (06:38→11:30)
[2022-02-15 07:40] VITALS: BP 123/70
[2022-02-15] MEDS: PANTOPRAZOLE 40 MG/VIAL IVP SCH (09:23)
[2022-02-15 11:47] VITALS: BP 127/67
== END 2022-02-15 13:42 | disposition home or self-care (01) | DRG 812 ==
LOC: EDH 15:23 → EDHIP 17:34 → 4AH 02-11 02:31
PROVIDERS: ADMIT Internal Medicine Infectious Disease; ATTEND Internal Medicine Infectious Disease
PROC: 30233N1 Transfusion of Nonautologous Red Blood Cells into Peripheral Vein, Percutaneous Approach (ICD-10-PCS; principal; 2022-02-11)
DX: D50.9 Iron deficiency anemia, unspecified (principal); K92.2 Gastrointestinal hemorrhage, unspecified; E78.5 Hyperlipidemia, unspecified; D63.8 Anemia in other chronic diseases classified elsewhere; D46.9 Myelodysplastic syndrome, unspecified; I25.10 Atherosclerotic heart disease of native coronary artery without angina pectoris; D69.6 Thrombocytopenia, unspecified; E66.01 Morbid (severe) obesity due to excess calories; I12.9 Hypertensive chronic kidney disease with stage 1 through stage 4 chronic kidney disease, or unspecified chronic kidney disease; N18.9 Chronic kidney disease, unspecified; C61 Malignant neoplasm of prostate; E78.00 Pure hypercholesterolemia, unspecified; E03.9 Hypothyroidism, unspecified; I48.91 Unspecified atrial fibrillation; Z95.0 Presence of cardiac pacemaker; G47.33 Obstructive sleep apnea (adult) (pediatric); E11.22 Type 2 diabetes mellitus with diabetic chronic kidney disease; Z68.35 Body mass index [BMI] 35.0-35.9, adult; Z82.49 Family history of ischemic heart disease and other diseases of the circulatory system; Z95.5 Presence of coronary angioplasty implant and graft; Z83.3 Family history of diabetes mellitus
CPT/HCPCS: 36415; 36430; 80048; 80053; 82270; 82948; 83540; 83550; 83735; 84484; 85025; 85027; 86850; 86900; 86901; 86923; 93005; 99291; C9113; G0378; J1756; J1815; J7050; P9016

== ENCOUNTER → 2022-07-06 | Outpatient (CLI) | payer OTHER ==
[~2022-07-06] MED LIST changes: +CITA10TA89 PO; +CYAN1TAB68 SL; +DICY10CA13 PO; +PANT40TA54 PO
== END | disposition home or self-care (01) ==
LOC: SHCH 08:46
PROVIDERS: ATTEND Internal Medicine Cardiovascular Disease
DX: I08.0 Rheumatic disorders of both mitral and aortic valves (principal); I49.5 Sick sinus syndrome; E11.9 Type 2 diabetes mellitus without complications; E78.5 Hyperlipidemia, unspecified; I27.20 Pulmonary hypertension, unspecified; Z95.0 Presence of cardiac pacemaker
CPT/HCPCS: 93306

== ENCOUNTER → 2023-08-08 | Outpatient (CLI) | payer OTHER ==
[~2023-08-08] MED LIST changes: +DICY-20 PO; -DICY10CA13 PO; -LOSA100T58 PO; +LOSA100T59 PO
== END | disposition home or self-care (01) ==
LOC: SHCH 08:48
PROVIDERS: ATTEND Internal Medicine Cardiovascular Disease
DX: I08.3 Combined rheumatic disorders of mitral, aortic and tricuspid valves (principal); I25.10 Atherosclerotic heart disease of native coronary artery without angina pectoris; I27.20 Pulmonary hypertension, unspecified; E11.9 Type 2 diabetes mellitus without complications; E78.5 Hyperlipidemia, unspecified; I48.20 Chronic atrial fibrillation, unspecified; Z95.0 Presence of cardiac pacemaker
CPT/HCPCS: 93306

== ENCOUNTER 2023-11-15 05:40 | Day surgery (SDC) | payer OTHER ==
[~2023-11-15] VITALS: Ht 167.6 cm; Wt 97.5 kg
[2023-11-15] VITALS (11 sets, daily range): BP systolic 106–138; BP diastolic 54–73; PULSE 69–72; RESP 14–17
[~2023-11-15 05:40] MED LIST changes: -CANA300T PO; +CLOP75TA32 PO; -CYAN1TAB68 SL; -DICY-20 PO; +LEVO125C4 PO; -LEVO137C4 PO; -PANT40TA54 PO
[2023-11-15] MEDS: 0.9%NACL 1000ML 1,000 ML IV ONE (07:00)
[2023-11-15] MEDS ORDERED: PROPOFOL 10 MG/ML 20ML VIAL IV ONE (08:46)
== END 2023-11-15 10:25 | disposition home or self-care (01) ==
LOC: DAH 05:40
PROVIDERS: ATTEND Internal Medicine Gastroenterology
DX: D50.9 Iron deficiency anemia, unspecified (principal); K29.50 Unspecified chronic gastritis without bleeding; K31.7 Polyp of stomach and duodenum; K31.A0 Gastric intestinal metaplasia, unspecified; K31.89 Other diseases of stomach and duodenum; K92.1 Melena; K31.A11 Gastric intestinal metaplasia without dysplasia, involving the antrum; K29.70 Gastritis, unspecified, without bleeding; K57.30 Diverticulosis of large intestine without perforation or abscess without bleeding; K21.9 Gastro-esophageal reflux disease without esophagitis; I10 Essential (primary) hypertension; I25.10 Atherosclerotic heart disease of native coronary artery without angina pectoris; I48.91 Unspecified atrial fibrillation; R93.2 Abnormal findings on diagnostic imaging of liver and biliary tract; K80.20 Calculus of gallbladder without cholecystitis without obstruction; E03.9 Hypothyroidism, unspecified; E78.5 Hyperlipidemia, unspecified; G47.30 Sleep apnea, unspecified; E11.9 Type 2 diabetes mellitus without complications; Z95.0 Presence of cardiac pacemaker; Z86.010 Personal history of colon polyps; Z82.3 Family history of stroke; Z82.49 Family history of ischemic heart disease and other diseases of the circulatory system; Z83.3 Family history of diabetes mellitus; Z87.19 Personal history of other diseases of the digestive system; Z79.899 Other long term (current) drug therapy; Z79.890 Hormone replacement therapy; Z98.890 Other specified postprocedural states
CPT/HCPCS: 44364; 82948 ×2; 44361; J7030 ×2; J2704; A4620; A4215; A7002; A4222; A4221; A4663; A4606; J3490

== ENCOUNTER → 2024-04-19 | Outpatient (CLI) | payer OTHER ==
[~2024-04-19] MED LIST changes: -ROSU40TA21 PO; +ROSU40TA70 PO
== END | disposition home or self-care (01) ==
LOC: SHCH 10:40
PROVIDERS: ATTEND Internal Medicine Cardiovascular Disease
DX: I08.8 Other rheumatic multiple valve diseases (principal); I48.20 Chronic atrial fibrillation, unspecified
CPT/HCPCS: 93306

== ENCOUNTER → 2024-07-12 | Outpatient (CLI) | payer OTHER ==
[~2024-07-12] MED LIST changes: -ROSU40TA70 PO; +ROSU40TA88 PO
== END | disposition home or self-care (01) ==
LOC: RAH 10:16
PROVIDERS: ATTEND Internal Medicine
DX: R14.0 Abdominal distension (gaseous) (principal)
CPT/HCPCS: 78264; A9541

== ENCOUNTER 2024-07-23 06:52 | Day surgery (SDC) | payer OTHER ==
[2024-07-19 12:36] LABS: BASOPHILS # (AUTO) 0.03 K/uL (0.00-0.20); BASOPHILS % (AUTO) 0.5 % (0.0-5.0); EOSINOPHILS # (AUTO) 0.12 K/uL (0.00-0.70); EOSINOPHILS % (AUTO) 1.9 % (0.0-8.0); HEMATOCRIT 26.9 % (42-54); IMMATURE GRANULOCYTE ABSOLUTE 0.03 K/uL (0-1); LYMPHOCYTES % (AUTO) 15.4 % (21.0-51.0); MEAN CORPUSCULAR HEMOGLOBIN 30.6 pg (27.0-33.0); MEAN CORPUSCULAR HGB CONC 30.1 g/dL (32.0-36.0); MEAN CORPUSCULAR VOLUME 101.5 fL (79-99); MONOCYTES # (AUTO) 0.6 K/uL (0.1-1.0); MONOCYTES % (AUTO) 9.3 % (3.0-13.0); NEUTROPHILS # (AUTO) 4.6 K/uL (1.8-7.7); NEUTROPHILS % (AUTO) 72.4 % (40.0-77.0); PLATELET COUNT (AUTO) 141 K/uL (130-400); RED BLOOD CELL COUNT(AUTO) 2.65 MIL/uL (4.50-6.20); RED CELL DISTRIBUTION WIDTH 18.3 % (11.0-15.5); WHITE BLOOD COUNT (AUTO) 6.4 K/uL (4.8-10.8)
[2024-07-19 12:37] VITALS: BP 132/66; PULSE 52; RESP 18; TEMP 98
[2024-07-19 13:12] LABS: CREATININE 1.4 mg/dL (0.5-1.3); POTASSIUM 3.9 mmol/L (3.5-5.1)
[2024-07-19 13:13] LABS: B-TYPE NATRIURETIC PEPTIDE 473 pg/mL (0-100)
[2024-07-19 13:32] LABS: APPEARANCE,URINE CLEAR (CLEAR); BILIRUBIN,URINE NEGATIVE (NEGATIVE); COLOR,URINE COLORLESS (YELLOW); GLUCOSE, URINE (UA) 500 mg/dL (NEGATIVE); KETONES,URINE NEGATIVE (NEGATIVE); LEUKOCYTE ESTERASE ,URINE NEGATIVE Leu/uL (NEGATIVE); NITRATE,URINE NEGATIVE (NEGATIVE); OCCULT BLOOD,URINE NEGATIVE (NEGATIVE); PH,URINE 6.5 (5.0-8.0); PROTEIN,URINE NEGATIVE (NEGATIVE); UROBILINOGEN,URINE 0.2 mg/dL (0.2-1.0)
[2024-07-19 13:42] LABS: INR 1.16 (0.85-1.15); PROTHROMBIN TIME 12.4 SEC (9.6-11.6)
[2024-07-19 13:43] LABS: PARTIAL THROMBOPLASTIN TIME 27.1 SEC (26.3-35.5)
[2024-07-19 13:46] LABS: ADD UA MICROSCOPIC YES
[2024-07-19 13:48] LABS: WBC,URINE 0-1 /HPF (0-1)
[~2024-07-23] VITALS: Ht 167.6 cm; Wt 94.0 kg
[~2024-07-23 06:52] MED LIST changes: -CLOP75TA32 PO; +EMPA10TA PO; +PANT40TA54 PO
== END 2024-07-23 07:30 | disposition home or self-care (01) ==
LOC: DAH 06:52
PROVIDERS: ATTEND Internal Medicine Cardiovascular Disease
DX: I25.10 Atherosclerotic heart disease of native coronary artery without angina pectoris (principal); I48.91 Unspecified atrial fibrillation; I49.5 Sick sinus syndrome; I10 Essential (primary) hypertension; E78.5 Hyperlipidemia, unspecified; E11.9 Type 2 diabetes mellitus without complications; Z79.4 Long term (current) use of insulin; Z99.89 Dependence on other enabling machines and devices; Z85.46 Personal history of malignant neoplasm of prostate; Z95.0 Presence of cardiac pacemaker; Z79.01 Long term (current) use of anticoagulants; Z79.899 Other long term (current) drug therapy; Z86.16 Personal history of COVID-19; Z53.8 Procedure and treatment not carried out for other reasons
CPT/HCPCS: 36415; 71045; 80048; 81001; 82948; 83880; 85025; 85610; 85730; 93005

== ENCOUNTER 2025-06-25 05:49 | Day surgery (SDC) | payer OTHER ==
[~2025-06-25] VITALS: Ht 167.6 cm; Wt 95.3 kg
[2025-06-25] VITALS (11 sets, daily range): BP systolic 103–148; BP diastolic 61–74; PULSE 67–90; RESP 12–18; TEMP 97.4–98.4
[~2025-06-25 05:49] MED LIST changes: +FERS325 PO; +FOLI0.4T6 PO; +FURO40TA5 PO; -LEVO125C4 PO; +LEVO125C5 PO; +METO5TAB2 PO
[2025-06-25] MEDS: 0.9%NACL 1000ML 1,000 ML IV ONE (06:32)
[2025-06-25] MEDS ORDERED: LIDOCAINE HCL 400MG/20ML VIAL ONE (07:10)
== END 2025-06-25 08:33 | disposition home or self-care (01) ==
LOC: DAH 05:49
PROVIDERS: ATTEND Internal Medicine Gastroenterology
DX: D50.9 Iron deficiency anemia, unspecified (principal); D12.0 Benign neoplasm of cecum; D12.3 Benign neoplasm of transverse colon; K57.30 Diverticulosis of large intestine without perforation or abscess without bleeding; K64.0 First degree hemorrhoids; G47.33 Obstructive sleep apnea (adult) (pediatric); I48.91 Unspecified atrial fibrillation; E11.9 Type 2 diabetes mellitus without complications; E03.9 Hypothyroidism, unspecified; I10 Essential (primary) hypertension; E78.5 Hyperlipidemia, unspecified; K31.84 Gastroparesis; K31.A11 Gastric intestinal metaplasia without dysplasia, involving the antrum; R93.2 Abnormal findings on diagnostic imaging of liver and biliary tract; K80.20 Calculus of gallbladder without cholecystitis without obstruction; I25.10 Atherosclerotic heart disease of native coronary artery without angina pectoris; K21.9 Gastro-esophageal reflux disease without esophagitis; Z85.46 Personal history of malignant neoplasm of prostate; Z95.0 Presence of cardiac pacemaker; Z99.89 Dependence on other enabling machines and devices; Z79.4 Long term (current) use of insulin; Z79.899 Other long term (current) drug therapy
CPT/HCPCS: 45380; 45385; 82948 ×2; J3490; J7030; J2704; A4620; A4215 ×2; A4223; A4222; A4221; A4663; A4606

== ENCOUNTER → 2025-09-26 | Outpatient (CLI) | payer OTHER ==
[~2025-09-26] MED LIST changes: -FERR325T29 PO; -FOLI1 PO; -FURO40TA7 PO; -METO5TAB2 PO
[2025-09-26] MEDS: REGADENOSON 0.4 MG/5 ML PF SYG IVP ONE (13:37)
--- NOTE | 2025-09-27 08:37 | HMCSR ---
APPROVED REPORT Height: 5 ft 6in Weight: 210 lbs TEST INDICATIONS Chest Pain The imaging protocol used to acquire images was Rest Tc-99m/stress Tc-99m 1 day Consent: The procedure was explained and understood by the patient. Informerd consent was witnessed by Cheri Bonilla RN First, low dose rest was performed then high dose stress. RESTING DATA: The resting ekg shows: Pacemaker Rest SPECT myocardial perfusion imaging was performed in supine position minutes following the intravenous injection of 11 mCi of Tc-99 Sestamibi. Time of rest injection: 1134 Date: 09/26/2025 Time of rest imagin Date: 09/26/2025 PHARMACOLOGIC STRESS: Pharmacologic stress test was performed by injecting regadenoson 0.4 mg IV push followed by the intravenous injection of 30 mCi of Tc-99 Sestamibi. Time of stress injection: 1252 Date: 09/26/2025 Time of stress imagin Date: 09/26/2025 Heart Rate at time of stress injection: 74 bpm. The images were gated to evaluate regional wall motion and calculate left ventricular ejection fraction. STRESS DETAILS Reason for Termination: Infusion complete Stress Symptoms: Nausea Max HR Achieved: 92 bpm % of APMHR Achieved: 75 Max Blood Pressure: 127/76 mmHg Stress ECG: Pacemaker LEFT VENTRICLE Size: The left ventricular size is normal. Systolic Function:The left ventricular systolic function is normal. Wall Motion: No regional wall motion abnormalities noted. The left ventricular ejection fraction was calculated to be 72%.TID = . LV PERFUSION Fixed infero-apical, lateral, and septal defects. No reversible defects noted. Conclusion The left ventricular size is normal. The left ventricular systolic function is normal. Fixed infero-apical, lateral, and septal defects. No reversible defects noted. The left ventricular ejection fraction was calculated to be 72%. No regional wall motion abnormalities noted.
== END ==
LOC: RAH 10:20
PROVIDERS: ATTEND Internal Medicine Cardiovascular Disease
DX: R07.9 Chest pain, unspecified (principal); Z95.0 Presence of cardiac pacemaker
CPT/HCPCS: 78452; 93017; J2785; A9500 ×2